=== PATIENT | male | born 1980 | race Caucasian/White ===

== ENCOUNTER → 2021-10-02 | Outpatient (CLI) | payer BC ==
--- NOTE | 2021-10-02 15:31 | US ---
EXAMINATION TYPE: US abdomen complete DATE OF EXAM: 10/02/2021 COMPARISON: NONE CLINICAL HISTORY: D69.59 Thrombocytopenia. Exam limitations due to body habitus. EXAM MEASUREMENTS: Liver Length: 18.6 cm Gallbladder Wall: .3 cm CBD: .7 cm Spleen: 11.7 cm Right Kidney: 10.7 x 5.7 x 6.3 cm Left Kidney: 12.8 x 4.6 x 4.8 cm Pancreas: Obscured by bowel gas Liver: Increased attenuation Gallbladder: No stones seen Evidence for sonographic Baxter's sign: No CBD: wnl Spleen: wnl Right Kidney: No hydronephrosis or masses seen Left Kidney: No hydronephrosis or masses seen Upper IVC: wnl Abd Aorta: wnl The intrahepatic portion of the IVC and proximal abdominal aorta are within normal limits. There is no evidence of cholelithiasis. Common bile duct is unremarkable. The visualized portions of the perry creas are homogenous. The spleen is unremarkable. Kidneys are symmetric and free of hydronephrosis. No renal lesions are seen. IMPRESSION: There is evidence of hepatic steatosis.
== END | disposition home or self-care (01) ==
LOC: RADUSWWP 14:41
PROVIDERS: ATTEND Internal Medicine Hematology & Oncology
DX: K76.0 Fatty (change of) liver, not elsewhere classified (principal); D69.59 Other secondary thrombocytopenia
CPT/HCPCS: 76700